=== PATIENT | male | born 1985 | race Two or more races ===

== ENCOUNTER 2018-02-12 19:33 | Emergency (ER) | payer OTHER ==
[2018-02-12] MEDS ORDERED: Ibuprofen 600 MG Tab PO ONE (19:34)
[2018-02-12] MEDS ORDERED: Iopamidol 612 MG/ML 100 ML Bottle IVPUSH ONE (19:46)
[2018-02-12] MEDS ORDERED: Morphine 2 MG/ML Syringe IVPUSH ONE (20:23)
[2018-02-12 20:47] LABS: ANION GAP 11.6; CHLORIDE,CL 99 mmol/L (101-111); SODIUM,NA 133 mmol/L (135-145)
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
[2018-02-12] MEDS ORDERED: Ibuprofen 600 MG Tab ONE (23:42)
== END 2018-02-12 23:48 | disposition home or self-care (01) ==
LOC: DL.ED 19:33
DX: R07.81 Pleurodynia (principal); M54.9 Dorsalgia, unspecified; V49.9XXA Car occupant (driver) (passenger) injured in unspecified traffic accident, initial encounter
CPT/HCPCS: 71260; 72125; 72128; 72131; 73030; 74177; 80053; 80305; 81001; 82150; 85025; 96374; 99285; G0480; J2270; Q9967; 36415; 73020-RT; 99284; A9270-GY